=== PATIENT | female | born 1960 | race Caucasian/White ===

== ENCOUNTER 2024-08-23 07:37 | Day surgery (SDC) | payer BC ==
[2024-08-23] MEDS: Sodium Chloride 0.9% 1,000 ML IV SCH (08:30)
[2024-08-23] MEDS ORDERED: Propofol 500 MG/50 ML SDV ONE (09:30)
[2024-08-23] MEDS ORDERED: Metoclopramide 10 MG/2 ML SDV ONE (09:42)
[2024-08-23] MEDS: Metoclopramide 10 MG/2 ML SDV IV PRN (09:44)
[2024-08-23 09:59] VITALS: BP 137/79; PULSE 80
== END 2024-08-23 10:53 | disposition home or self-care (01) ==
LOC: LB.SDS 07:37
PROVIDERS: ATTEND Surgery
DX: Z12.11 Encounter for screening for malignant neoplasm of colon (principal); D12.3 Benign neoplasm of transverse colon; K63.5 Polyp of colon; K57.30 Diverticulosis of large intestine without perforation or abscess without bleeding; I10 Essential (primary) hypertension; E78.5 Hyperlipidemia, unspecified; E66.9 Obesity, unspecified; Z68.33 Body mass index [BMI] 33.0-33.9, adult; Z87.891 Personal history of nicotine dependence; Z86.0101 Personal history of adenomatous and serrated colon polyps; Z79.899 Other long term (current) drug therapy
CPT/HCPCS: 88305; J2704; J2765; J7030